=== PATIENT | female | born 1990 | race African-American/Black ===

== ENCOUNTER → 2024-07-12 09:58 | Outpatient (REF) | payer OTHER, SELFPAY ==
[2024-07-12 18:58] LABS: Hepatitis B Surface Antibody Positive
[2024-07-12 19:34] LABS: Rubella Positive
== END ==
LOC: OHS 09:58
PROVIDERS: ATTENDING PHYSICIAN Nurse Practitioner Family
DX: Z23 Encounter for immunization (principal)
CPT/HCPCS: 36415; 86706; 86735; 86762; 86765; 86787